=== PATIENT | male | born 1975 | race Caucasian/White ===

== ENCOUNTER 2018-09-28 18:31 | Emergency (ER) | payer SELFPAY ==
[~2018-09-28] VITALS: Ht 167.6 cm; Wt 113.4 kg
[~2018-09-28 18:31] MED LIST: IBUPROFEN400 MG PO; LEVOTHYROXINE50 MCG PO; MEDROL4 MG/DOSE- PEG; PEPCID20 MG PO
--- OUTSIDE RECORDS SUMMARY | 2018-09-28 18:36 | XMS REPORT ---
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 Allergies, Adverse Reactions, Alerts This patient has no known allergies or adverse reactions. Medications This patient has no known medications. Encounters Start Date/Time End Date/Time Encounter Type Admission Type Attending [facility] Facility Care Department Encounter ID 2018-07-21 00:00:00 2018-07-22 00:00:00 Outpatient [facility] [id number] Results Test Description Test Time Test Comments Text Results Atomic Results Result Comments CHEST 2 VIEWS [place] [address] Patient Name: RAMYA TEJEDA MR #: [id number] : 1975 Age/Sex: 42/M Req #: [id number] Adm Physician: Ordered by: IGNACIO OLIVEIRA MD Report #: [id number] Location: ER Room/Bed: Procedure: [id number] DX/CHEST 2 VIEWS Exam Date: 07/18/17 Exam Time: 2240 REPORT STATUS: Signed CHEST 2 VIEWS, Technique: CHEST 2 VIEWS Comparison: Chest pain Clinical history: 08/12/2016 DISCUSSION: Stable appearance of the heart, mediastinum, lungs and pleural spaces. IMPRESSION: No acute abnormality. Signed by: Dr Yanira Jhaveri MD on 07/18/2017 11:08 PM Dictated By: YANIRA JHAVERI MD 07 Transcribed By: RADHA on 07/18/172307 COPY TO: IGNACIO OLIVEIRA MD
== END 2018-09-28 19:40 | disposition home or self-care (01) ==
LOC: ER 18:31
DX: L02.31 Cutaneous abscess of buttock (principal); E03.9 Hypothyroidism, unspecified
CPT/HCPCS: 99282

== ENCOUNTER 2019-03-17 03:27 | Emergency (ER) | payer BC ==
[~2019-03-17] VITALS: Ht 167.6 cm; Wt 97.5 kg
[2019-03-17] MEDS ORDERED: MORPHINE SULFATE 2 MG/ML SYR 1ML IV STA (03:30)
[2019-03-17] MEDS ORDERED: ONDANSETRON HCL INJ 2MG/ML 2ML 2 MG/ML VIAL IV STA (03:30)
[2019-03-17] MEDS ORDERED: SODIUM CHLORIDE 0.9% 1000ML 1,000 ML IV ONE (03:30)
[2019-03-17] MEDS ORDERED: MORPHINE SULFATE INJ 4 MG/ML INJ 1ML ONE (03:49)
[2019-03-17 03:55] LABS: BASOPHILS # (AUTO) 0.1 (0.0-0.1); BASOPHILS % 0.5 % (0.0-1.0); EOSINOPHILS # (AUTO) 0.4 (0.0-0.4); EOSINOPHILS % 3.1 % (0.0-6.0); HEMATOCRIT 47.4 % (38.2-49.6); HEMOGLOBIN 16.4 g/dL (14.0-18.0); LYMPHOCYTES # (AUTO) 2.6 (1.0-3.2); LYMPHOCYTES % 21.6 % (18.0-39.1); MEAN CORPUSCULAR HEMOGLOBIN 31.7 pg (28-32); MEAN CORPUSCULAR HGB CONC 34.6 g/dL (31-35); MEAN CORPUSCULAR VOLUME 91.7 fL (81-99); MONOCYTES # (AUTO) 1.1 (0.2-0.8); MONOCYTES % 9.1 % (4.4-11.3); NEUTROPHILS # (AUTO) 7.8 (2.1-6.9); NEUTROPHILS % 65.2 % (38.7-80.0); PLATELET COUNT 255 x10e3/uL (140-360); RED BLOOD COUNT 5.17 x10e6/uL (4.3-5.7); RED CELL DISTRIBUTION WIDTH 13.2 % (11.7-14.4)
[2019-03-17 04:19] LABS: ALANINE AMINOTRANSFERASE 20 IU/L (0-55); ALBUMIN 3.4 g/dL (3.5-5.0); ALBUMIN/GLOBULIN RATIO 1.2 (0.8-2.0); ALKALINE PHOSPHATASE 72 IU/L (40-150); AMYLASE 28 U/L (25-125); ANION GAP 12.2 mmol/L (8-16); BLOOD UREA NITROGEN 7 mg/dL (7-26); BUN/CREATININE RATIO 8 (6-25); CALCIUM 8.7 mg/dL (8.4-10.2); CARBON DIOXIDE 25 mmol/L (22-29); CHLORIDE 103 mmol/L (98-107); CREATININE, SERUM 0.83 mg/dL (0.72-1.25); EST GLOMERULAR FILTRATION RATE > 60 ML/MIN (60-); GLUCOSE 150 mg/dL (74-118); LIPASE 11 U/L (8-78); POTASSIUM 4.2 mmol/L (3.5-5.1); SODIUM 136 mmol/L (136-145)
[2019-03-17 04:20] LABS: AMPHETAMINES SCREEN,URINE NEGATIVE (NEGATIVE); PHENCYCLIDINE SCREEN,URINE NEGATIVE (NEGATIVE)
[2019-03-17 04:21] LABS: BENZODIAZEPINES SCREEN,URINE NEGATIVE (NEGATIVE)
[2019-03-17 04:24] LABS: CLARITY,URINE HAZY (CLEAR); COLOR,URINE YELLOW (YELLOW); LEUKOCYTE ESTERASE ,URINE 1+ (NEGATIVE)
[2019-03-17 04:25] LABS: BACTERIA,URINE MODERATE /HPF; BILIRUBIN,URINE NEGATIVE (NEGATIVE); EPITHELIAL CELLS,URINE MODERATE /LPF; KETONES,URINE NEGATIVE (NEGATIVE); NITRITE,URINE NEGATIVE (NEGATIVE); PROTEIN,URINE DIPSTICK NEGATIVE (NEGATIVE); URINE UROBILINOGEN 0.2 mg/dL (0.2 - 1); WBC,URINE (MAN) 21-50 /HPF (0-5)
[2019-03-17] MEDS ORDERED: IOPAMIDOL 370 MG/ML 200 ML INFUS..BTL INJ ONE (04:32)
[2019-03-17] MEDS ORDERED: SODIUM CHLORIDE 0.9% 50ML 50 ML ONE (04:32)
--- NOTE | 2019-03-17 05:20 | Diagnostic Imaging Report ---
EXAMINATION: CT of the abdomen and pelvis with contrast. TECHNIQUE: Spiral CT images of the abdomen and pelvis were performed from the lung bases to the lesser trochanters after the intravenous administration of 100 cc of Isovue 370 and the oral administration of water. Coronal and sagittal reformatted images were obtained. COMPARISON: None. CLINICAL HISTORY:Right lower quadrant abdominal pain for one day DISCUSSION: ABDOMEN/PELVIS: LOWER THORAX:Unremarkable. HEPATOBILIARY: No focal hepatic lesions. No intra or extrahepatic biliary ductal dilation. GALLBLADDER: No radio-opaque stones or sludge. No wall thickening. SPLEEN: No splenomegaly. PANCREAS: No focal masses or ductal dilatation. ADRENALS: No adrenal nodules. KIDNEYS/URETERS: No hydronephrosis, stones, or solid mass lesions. PELVIC ORGANS/BLADDER: Bladder and prostate are unremarkable. PERITONEUM/RETROPERITONEUM: No free air or fluid. LYMPH NODES: Mildly prominent although subcentimeter lymph node in the ileocolic vessel distribution, (series 2, image 47). No intra-abdominal, retroperitoneal, pelvic or inguinal adenopathy. VESSELS: The celiac trunk,superior and inferior mesenteric and bilateral renal arteries are patent The portal, superior mesenteric and splenic veins are patent. GI TRACT: Moderate wall thickening involving the distal aspect of the ileum extending to the terminal ileum and proximal cecum (best visualized on coronal image 47 and series 2, images 54-70), with mild surrounding stranding. Appendix is well identified and normal in caliber (coronal image 43-53). No foci of extraluminal air air or well-defined enhancing fluid collections. Rest of the bowel shows no wall thickening. No dilation or evidence of obstruction. BONES AND SOFT TISSUE: No aggressive lytic lesions. No soft tissue abnormalities. IMPRESSION: 1. Findings consistent with distal ileal/terminal ileal enteritis extending to the proximal cecum, which can be infectious or inflammatory (particularly, this may be the initial presentation of Crohn's disease). No perforation or adjacent abscess formation. 2. Appendix is normal Signed by: Dr. Charles Butler M.D. on 03/17/2019 5:16 AM
[2019-03-17 05:29] VITALS: BP 115/79
== END 2019-03-17 05:38 | disposition home or self-care (01) ==
LOC: ER 03:27
DX: R10.31 Right lower quadrant pain (principal); R11.0 Nausea; A04.9 Bacterial intestinal infection, unspecified; E03.9 Hypothyroidism, unspecified
CPT/HCPCS: 36415; 74177; 80053; 80307; 81001; 82150; 83690; 85025; 96374; 99284; J2270; J2405; J7030; Q9967

== ENCOUNTER 2020-03-09 14:24 | Emergency (ER) | payer SELFPAY ==
[~2020-03-09] VITALS: Ht 167.6 cm; Wt 97.5 kg
[2020-03-09] MEDS ORDERED: CLINDAMYCIN PHOS 600 MG/ 4 ML VIAL IM ONE (15:00)
--- NOTE | 2020-03-12 16:27 | Emergency Department Note ---
History of Present Illnes History of Present Illness Chief Complaint: General Medicine Complaints Stated Complaint: BUG BITE History of Present Illness This is a 44 year old male . Historian: Patient Onset (how long ago): day(s) Location: right penus Radiation: non-radiation Severity: moderate Onset quality: sudden Duration (how long): day(s) Timing of current episode: constant Progression: worsening Chronicity: new Relieving factors: none Exacerbating factors: none Associated symptoms: denies other symptoms Treatments prior to arrival: none Past Medical/Family History Physician Review I have reviewed the patient's past medical and family history. Any updates have been documented here. Past Medical History Recent Fever: No Clinical Suspicion of Infectio: No New/Unexplained Change in Ment: No Past Medical History: Hypertension, Hypothyroidism Other Medical History: "Possible heart attack in 2003." Past Surgical History: None Other Surgery: LEFT KNEE SCOPE Social History Smoking Cessation: Current every day smoker Counseling Performed: No Alcohol Use: Social Any Illegal Drug Use: No TB Exposure/Symptoms: No Physically hurt or threatened: No Other Last Tetanus: UTD Any Pre-Existing Lines (PICC,: No Is patient up to date on immun: No Last Flu: 2016 Last Pneumovax: never Review of Systems Review of Systems Constitutional: no symptoms EENTM: no symptoms Cardiovascular: no symptoms Gastointestinal/Abdominal: no symptoms Musculoskeletal: no symptoms Integumentary: rash Neurological: no symptoms Psychological: no symptoms Endocrine: no symptoms Hematological/Lymphatic: no symptoms Review of other systems All other systems reviewed and negative. Physical Exam Related Data Allergies: Coded Allergies: carisoprodol (Verified Allergy, Severe, body swelling, 03/17/19) celecoxib (Verified Allergy, Intermediate, itching, 03/17/19) Triage Vital Signs Vital Signs Date Time Temp Pulse Resp B/P (MAP) Pulse Ox O2 Delivery O2 Flow Rate FiO2 03/09/20 14:56 98.5 77 16 144/97 98 Exam Narrative Exam Narrative Patient is a 44 year old male that presents with an abscess x 1 day. Patient states he noticed small bump yeaterday. Today states area is red and abscess "popped" and is oozing pus. Patient denies any other complaints. Physical Exam CONSTITUTIONAL Constitutional: well-developed, well-nourished, obese HENT HENT: normocephalic EYES Eyes: PERRL NECK Neck: ROM normal, supple PULMONARY Pulmonary: effort normal, breath sounds normal CARDIOVASCULAR Cardiovascular: regular rhythm GASTROINTESTINAL Abdominal: soft, nontender GENITOURINARY SKIN Skin: erythema MUSCULOSKELETAL Musculoskeletal: ROM normal NEUROLOGICAL Neurological: alert, oriented x 3 PSYCHOLOGICAL Psychiatric/behavioral: mood/affect normal Critical Care Time Subsequent provider I assumed direction of critical care for this patient from another provider of my specialty. Assessment & Plan Assessment & Plan Problems: (1) Cellulitis and abscess of trunk Assessment & Plan DISCUSSED WITH DR JOSHI PATIENT PRESENTATION, EXAM AND PLAN OF CARE. WILL GIVE ABX HERE AND DC PATIENT ON SAME. Depart Disposition: HOME, SELF-CARE Last Vital Signs Date Time Temp Pulse Resp B/P (MAP) Pulse Ox O2 Delivery O2 Flow Rate FiO2 03/09/20 14:56 98.5 77 16 144/97 98 Home Meds Reported Medications Methylprednisolone (MEDROL DOSE PACK) 4 Mg/Dose Pack Tab, 1 TAB PEG DAILY for 7 Days 02/14/17 Ibuprofen (IBUPROFEN) 400 Mg Tablet, 800 MG PO TID, TAB 02/14/17 Levothyroxine Sodium (LEVOTHYROXINE SODIUM) 50 Mcg Tablet, 50 MCG PO DAILY, #30 TAB 02/14/17 Famotidine (PEPCID) 20 Mg Tablet, 20 MG PO DAILY, #60 TAB 09/24/16 Medications in the ED Clindamycin Phosphate 600 mg ONCE ONCE IM ; Start 03/09/20 at 15:00; Stop 03/09/20 at 15:01; Status WILFRED TERRAZAS NP March 09, 2020 15:08
== END 2020-03-09 15:38 | disposition home or self-care (01) ==
LOC: ER 14:24
DX: N48.22 Cellulitis of corpus cavernosum and penis (principal); I10 Essential (primary) hypertension; E03.9 Hypothyroidism, unspecified; F17.210 Nicotine dependence, cigarettes, uncomplicated
CPT/HCPCS: 99282